=== PATIENT | female | born 1935 | race African-American/Black ===

== ENCOUNTER 2018-12-06 15:11 | Inpatient (IN) | payer OTHER ==
[~2018-12-06] VITALS: Ht 165.1 cm; Wt 111.4 kg
[~2018-12-06 15:11] MED LIST: LIDOCAINE HCL/PF 1% 2ML VIAL ONE
[2018-12-06] MEDS ORDERED: METHYLPREDNISOLONE SOD SUCC 125 MG/2 ML VIAL IV STA (15:28)
[2018-12-06] MEDS ORDERED: ASPIRIN 81MG TABLET PO ONE (15:30)
[2018-12-06] MEDS ORDERED: FUROSEMIDE 40MG/4ML VIAL IV ONE (15:30)
[2018-12-06] MEDS ORDERED: IPRATROPIUM/ALBUTEROL 0.5-3(2.5)MG/3ML NEB HHN ONE (15:30)
[2018-12-06] MEDS ORDERED: LEVOFLOXACIN 750MG PREMIX 150 ML IV ONE (15:30)
[2018-12-06 16:03] LABS: HEMATOCRIT. 33.4 % (36.0-48.0); HEMOGLOBIN. 10.5 g/dL (12.0-16.0); MEAN CORPUSCULAR HEMOGLOBIN 23.8 pg (28.0-32.0); MEAN CORPUSCULAR VOLUME 75.8 fL (81.0-99.0); MEAN PLATELET VOLUME 10.4 fl (7.4-10.4); PLATELET 146 x1000/uL (130-400); RED CELL DISTRIBUTION WIDTH 16.4 % (11.6-14.6)
[2018-12-06 16:04] LABS: CHLORIDE 103 mEq/L (98-107)
[2018-12-06 16:06] LABS: INR 1.6; PARTIAL THROMBOPLASTIN TIME 34.8 sec (23.4-31.0); PROTHROMBIN TIME 16.7 sec (9.6-11.0)
[2018-12-06 16:08] LABS: ETHANOL BLOOD < 10 mg/dL
[2018-12-06 17:26] LABS: BG BASE EXCESS 1.3 mmol/L (-2.0-2.0); BG BILEVEL POS AIRWAY PRESSURE 15/5; BG CARBOXYHEMOGLOBIN 1.1 % (0.5-1.5); BG DEOXYHEMOGLOBIN 3.7 % (0.0-5.0); BG HCO3 ACT 26.3 mmol/L (22.0-26.0); BG METHEMOGLOBIN 0.1 % (0.0-1.5); BG OXYGEN SATURATION 96.3 % (92.0-98.5); BG OXYHEMOGLOBIN 95.1 % (94.0-97.0); BG PCO2 43.1 mmHg (35.0-45.0); BG PH 7.403 (7.350-7.450); BG PO2 86.5 mmHg (75.0-100.0); BG SAMPLE SITE RIGHT RADIAL; BG TOTAL HEMOGLOBIN 11.3 g/dL (12.0-18.0); BG VENT MODE MASK - BIPAP; BG VENT RATE 14 set
[2018-12-06 18:02] LABS: PLATELET ESTIMATE NORMAL
[2018-12-06 21:00] VITALS: BP_SYST 120; BP_SYST 143; BP_DIAS 112; BP_DIAS 74
[2018-12-06 22:00] VITALS: BP 120/74
[2018-12-06] MEDS ORDERED: POTA99TA25 PO (22:43)
[2018-12-06] MEDS ORDERED: METO-539 PO (22:43)
[2018-12-06] MEDS ORDERED: BENA40TA9 PO (22:43)
[2018-12-06] MEDS ORDERED: ATOR40TA70 PO (22:43)
[2018-12-06] MEDS ORDERED: AMLO10TA80 PO (22:43)
[2018-12-06] MEDS ORDERED: APIX5TAB PO (22:43)
[2018-12-06] MEDS ORDERED: HYDR-3280 PO (22:43)
[2018-12-06] MEDS ORDERED: LETR2.5T6 PO (22:43)
[2018-12-06] MEDS ORDERED: CALC-989 PO (22:43)
[2018-12-06] MEDS ORDERED: FURO-151 PO (22:43)
[2018-12-06] MEDS ORDERED: LEVOFLOXACIN 500MG PREMIX 100 ML IV SCH (23:00)
[2018-12-06] MEDS ORDERED: DEXTROSE 50% WATER 50ML SYRINGE IV PRN (23:45)
[2018-12-07] VITALS (12 sets, daily range): BP systolic 99–153; BP diastolic 52–77
[2018-12-07] MEDS: IPRATROPIUM/ALBUTEROL 0.5-3(2.5)MG/3ML NEB HHN SCH ×4 (00:46→21:07)
[2018-12-07 06:34] LABS: HEMATOCRIT. 31.9 % (36.0-48.0); HEMOGLOBIN. 10.3 g/dL (12.0-16.0); MEAN CORPUSCULAR HEMOGLOBIN 24.2 pg (28.0-32.0); MEAN CORPUSCULAR VOLUME 74.7 fL (81.0-99.0); MEAN PLATELET VOLUME 10.8 fl (7.4-10.4); PLATELET 127 x1000/uL (130-400); RED BLOOD CELL COUNT 4.27 mill/uL (4.2-5.4); RED CELL DISTRIBUTION WIDTH 16.6 % (11.6-14.6)
[2018-12-07 07:30] LABS: PHOSPHORUS 3.8 mg/dL (2.5-4.9)
[2018-12-07] MEDS: BLOOD SUGAR DIAGNOSTIC STRIP TEST SCH ×4 (08:20→20:46)
[2018-12-07 08:30] LABS: CLARITY URINE CLOUDY (CLEAR); COLOR URINE YELLOW (YELLOW); KETONES URINE TRACE (NEGATIVE); LEUKOCYTE ESTERASE URINE NEGATIVE (NEGATIVE); NITRITE URINE NEGATIVE (NEGATIVE); OCCULT BLOOD URINE NEGATIVE (NEGATIVE); PROTEIN URINE 2+ (NEGATIVE); SPECIFIC GRAVITY URINE 1.014 (1.005-1.030); UROBILINOGEN URINE 0.2 E.U./dL (0.2-1.0)
[2018-12-07] MEDS: FUROSEMIDE 40MG/4ML VIAL IVP SCH ×2 (08:33→20:32)
[2018-12-07] MEDS: INSULIN LISPRO 100 UNITS/ML SUBCUT SCH ×4 (08:40→21:04)
[2018-12-07] MEDS: ACETAMINOPHEN 650MG/20.3ML UDC PO PRN ×2 (08:52→14:38)
[2018-12-07 08:53] LABS: *AMPHETAMINES SCREEN URINE NEGATIVE (NEGATIVE); *BARBITURATES SCREEN URINE NEGATIVE (NEGATIVE); *BENZODIAZEPINES SCREEN URINE NEGATIVE (NEGATIVE); *COCAINE SCREEN URINE NEGATIVE (NEGATIVE)
[2018-12-07 08:55] LABS: CANNABINOID URINE SCREEN NEGATIVE (NEGATIVE); METHADONE URINE SCREEN NEGATIVE (NEGATIVE); OPIATES URINE SCREEN PRESUMTIVE POSITIVE (NEGATIVE)
[2018-12-07 08:56] LABS: PHENCYCLIDINE URINE SCREEN NEGATIVE (NEGATIVE)
[2018-12-07] MEDS ORDERED: ENOXAPARIN 30MG/0.3ML SYR SUBCUT SCH (09:00)
[2018-12-07] MEDS ORDERED: MAGNESIUM 2 G PREMIX 50 ML IV SCH (10:00)
[2018-12-07] MEDS ORDERED: PROMETHAZINE/DEXTROMETHORPHAN 6.25-15MG/5ML BOTTLE 120ML PO PRN (12:30)
[2018-12-07] MEDS: AMLODIPINE 2.5MG TABLET PO SCH ×2 (12:50→21:07)
[2018-12-07] MEDS: BENAZEPRIL 5MG TABLET PO SCH ×2 (12:50→21:03)
[2018-12-07] MEDS: GUAIFENESIN 600MG ER TABLET PO SCH ×2 (12:50→20:37)
[2018-12-07] MEDS: METOPROLOL TARTRATE 25MG TABLET PO SCH ×2 (12:50→20:46)
[2018-12-07 14:28] LABS: PLATELET ESTIMATE NORMAL
[2018-12-07] MEDS ORDERED: APIXABAN 5 MG TABLET PO SCH ×2 (14:45→21:00)
[2018-12-07] MEDS: LETROZOLE 2.5MG TABLET PO SCH (16:17)
[2018-12-07] MEDS: LEVOFLOXACIN 250MG PREMIX 50 ML IV SCH (16:19)
[2018-12-07] MEDS ORDERED: IPRATROPIUM/ALBUTEROL 0.5-3(2.5)MG/3ML NEB HHN PRN (16:20)
[2018-12-07] MEDS: SODIUM CHLORIDE 45ML SPRAY NS SCH ×2 (17:14→20:43)
[2018-12-07] MEDS ORDERED: APIX5TAB PO (20:26)
[2018-12-07] MEDS: OXYMETAZOLINE HCL NASAL SPRAY 15ML BOTHNSTRLS SCH (20:33)
[2018-12-07] MEDS: FLUTICASONE PROPIONATE 50MCG/SPRAY BOTTLE BOTHNSTRLS SCH (20:33)
[2018-12-07] MEDS: APIXABAN 2.5 MG TABLET PO SCH (20:37)
[2018-12-08] VITALS (12 sets, daily range): BP systolic 103–141; BP diastolic 55–91
[2018-12-08] MEDS ORDERED: VANCOMYCIN 1500MG in DEXTROSE 5% WATER 250ML IV NR (01:00)
[2018-12-08] MEDS: IPRATROPIUM/ALBUTEROL 0.5-3(2.5)MG/3ML NEB HHN SCH ×3 (02:21→15:55)
[2018-12-08] MEDS: BLOOD SUGAR DIAGNOSTIC STRIP TEST SCH ×4 (07:30→21:30)
[2018-12-08] MEDS: BENAZEPRIL 5MG TABLET PO SCH ×2 (09:00→22:01)
[2018-12-08] MEDS: AMLODIPINE 2.5MG TABLET PO SCH ×2 (09:00→22:02)
[2018-12-08] MEDS: METOPROLOL TARTRATE 25MG TABLET PO SCH ×2 (09:00→21:26)
[2018-12-08 09:07] LABS: BG CARBOXYHEMOGLOBIN 0.6 % (0.5-1.5); BG DEOXYHEMOGLOBIN 6.3 % (0.0-5.0); BG FRACTION INSPIRED OXYGEN 28; BG HCO3 ACT 24.6 mmol/L (22.0-26.0); BG METHEMOGLOBIN 0.1 % (0.0-1.5); BG OXYGEN SATURATION 93.7 % (92.0-98.5); BG PCO2 39.6 mmHg (35.0-45.0); BG PH 7.411 (7.350-7.450); BG PO2 74.5 mmHg (75.0-100.0); BG SAMPLE SITE RIGHT RADIAL; BG TOTAL HEMOGLOBIN 11.2 g/dL (12.0-18.0); BG VENT MODE NASAL CANNULA
[2018-12-08] MEDS: FUROSEMIDE 40MG/4ML VIAL IVP SCH ×2 (09:57→21:23)
[2018-12-08] MEDS: APIXABAN 2.5 MG TABLET PO SCH ×2 (09:59→21:25)
[2018-12-08] MEDS: OXYMETAZOLINE HCL NASAL SPRAY 15ML BOTHNSTRLS SCH ×2 (10:00→21:28)
[2018-12-08] MEDS: FLUTICASONE PROPIONATE 50MCG/SPRAY BOTTLE BOTHNSTRLS SCH ×2 (10:00→21:29)
[2018-12-08] MEDS: SODIUM CHLORIDE 45ML SPRAY NS SCH ×4 (10:02→21:28)
[2018-12-08] MEDS: LETROZOLE 2.5MG TABLET PO SCH (10:02)
[2018-12-08] MEDS: GUAIFENESIN 600MG ER TABLET PO SCH ×2 (10:21→21:25)
[2018-12-08] MEDS: ACETAMINOPHEN 650MG/20.3ML UDC PO PRN ×2 (10:21→19:08)
[2018-12-08] MEDS: INSULIN LISPRO 100 UNITS/ML SUBCUT SCH ×4 (10:23→21:43)
[2018-12-08] MEDS ORDERED: FURO80TA3 MT (16:08)
[2018-12-08] MEDS: LEVOFLOXACIN 250MG PREMIX 50 ML IV SCH (16:08)
[2018-12-08] MEDS ORDERED: TOPXL5 MT (16:11)
[2018-12-08] MEDS ORDERED: DIXL5 MT (16:13)
[2018-12-08] MEDS ORDERED: GLIM1TAB2 MT (16:13)
[2018-12-08] MEDS ORDERED: BUSP-29 PO (16:13)
[2018-12-08] MEDS: IPRATROPIUM BROMIDE (0.02%) 0.5MG/2.5ML NEB HHN SCH (21:11)
[2018-12-08] MEDS: BUDESONIDE 0.5MG/2ML NEB HHN SCH (21:12)
[2018-12-09] VITALS (13 sets, daily range): BP systolic 99–159; BP diastolic 64–93
[2018-12-09] MEDS: IPRATROPIUM BROMIDE (0.02%) 0.5MG/2.5ML NEB HHN SCH ×4 (01:54→21:20)
[2018-12-09] MEDS: BLOOD SUGAR DIAGNOSTIC STRIP TEST SCH ×4 (07:34→21:31)
[2018-12-09] MEDS: METOPROLOL TARTRATE 25MG TABLET PO SCH ×2 (08:13→21:31)
[2018-12-09] MEDS: INSULIN LISPRO 100 UNITS/ML SUBCUT SCH ×4 (08:16→22:08)
[2018-12-09] MEDS: LETROZOLE 2.5MG TABLET PO SCH (09:17)
[2018-12-09] MEDS: OXYMETAZOLINE HCL NASAL SPRAY 15ML BOTHNSTRLS SCH ×2 (09:17→21:34)
[2018-12-09] MEDS: FLUTICASONE PROPIONATE 50MCG/SPRAY BOTTLE BOTHNSTRLS SCH ×2 (09:17→21:34)
[2018-12-09] MEDS: SODIUM CHLORIDE 45ML SPRAY NS SCH ×4 (09:17→21:33)
[2018-12-09] MEDS: AMLODIPINE 2.5MG TABLET PO SCH ×2 (09:18→21:31)
[2018-12-09] MEDS: GUAIFENESIN 600MG ER TABLET PO SCH ×2 (09:18→21:31)
[2018-12-09] MEDS: APIXABAN 2.5 MG TABLET PO SCH ×2 (09:18→21:31)
[2018-12-09] MEDS: BUDESONIDE 0.5MG/2ML NEB HHN SCH ×2 (09:23→21:20)
[2018-12-09] MEDS ORDERED: VANCOMYCIN 2,000 MG in DEXT 5% WATER 500 ML IV NR (11:00)
[2018-12-09] MEDS: LEVOFLOXACIN 250MG PREMIX 50 ML IV SCH (15:36)
[2018-12-09 16:11] LABS: HEMATOCRIT. 33.1 % (36.0-48.0); HEMOGLOBIN. 10.7 g/dL (12.0-16.0); MEAN CORPUSCULAR HEMOGLOBIN 24.1 pg (28.0-32.0); MEAN CORPUSCULAR VOLUME 74.5 fL (81.0-99.0); MEAN PLATELET VOLUME 10.2 fl (7.4-10.4); PLATELET 155 x1000/uL (130-400); RED BLOOD CELL COUNT 4.45 mill/uL (4.2-5.4); RED CELL DISTRIBUTION WIDTH 16.2 % (11.6-14.6)
[2018-12-09 17:04] LABS: PLATELET ESTIMATE NORMAL
[2018-12-09] MEDS ORDERED: POTASSIUM CHLORIDE 20MEQ TABLET SR PO NR (19:45)
[2018-12-10] VITALS (13 sets, daily range): BP systolic 95–154; BP diastolic 56–102
[2018-12-10] MEDS: ACETAMINOPHEN 650MG/20.3ML UDC PO PRN
[2018-12-10] MEDS: IPRATROPIUM BROMIDE (0.02%) 0.5MG/2.5ML NEB HHN SCH ×4 (02:05→20:37)
[2018-12-10] MEDS: BLOOD SUGAR DIAGNOSTIC STRIP TEST SCH ×4 (07:30→21:00)
[2018-12-10] MEDS: INSULIN LISPRO 100 UNITS/ML SUBCUT SCH ×4 (08:00→22:30)
[2018-12-10] MEDS: BUDESONIDE 0.5MG/2ML NEB HHN SCH ×2 (08:45→20:37)
[2018-12-10] MEDS: METOPROLOL TARTRATE 25MG TABLET PO SCH (09:00)
[2018-12-10] MEDS: AMLODIPINE 2.5MG TABLET PO SCH (09:00)
[2018-12-10] MEDS: LETROZOLE 2.5MG TABLET PO SCH (10:26)
[2018-12-10] MEDS: FLUTICASONE PROPIONATE 50MCG/SPRAY BOTTLE BOTHNSTRLS SCH (10:26)
[2018-12-10] MEDS: SODIUM CHLORIDE 45ML SPRAY NS SCH ×4 (10:26→21:00)
[2018-12-10] MEDS: APIXABAN 2.5 MG TABLET PO SCH ×2 (10:27→20:50)
[2018-12-10] MEDS: GUAIFENESIN 600MG ER TABLET PO SCH ×2 (10:27→20:57)
[2018-12-10] MEDS: OXYMETAZOLINE HCL NASAL SPRAY 15ML BOTHNSTRLS SCH ×2 (10:31→21:00)
[2018-12-10 11:45] LABS: BG CARBOXYHEMOGLOBIN 0.8 % (0.5-1.5); BG DEOXYHEMOGLOBIN 9.4 % (0.0-5.0); BG FRACTION INSPIRED OXYGEN 21; BG HCO3 ACT 29.4 mmol/L (22.0-26.0); BG METHEMOGLOBIN 0.1 % (0.0-1.5); BG OXYGEN SATURATION 90.5 % (92.0-98.5); BG OXYHEMOGLOBIN 89.7 % (94.0-97.0); BG PCO2 42.9 mmHg (35.0-45.0); BG PH 7.454 (7.350-7.450); BG PO2 58.2 mmHg (75.0-100.0); BG SAMPLE SITE RIGHT RADIAL; BG TOTAL HEMOGLOBIN 11.4 g/dL (12.0-18.0); BG VENT MODE ROOM AIR
[2018-12-10] MEDS ORDERED: VANCOMYCIN 1,750 MG in DEXT 5% WATER 500 ML IV NR ×2 (14:00→17:00)
[2018-12-10] MEDS ORDERED: DIGOXIN 500MCG/2ML AMP IV ONE ×2 (16:00→22:00)
[2018-12-10] MEDS: LEVOFLOXACIN 250MG PREMIX 50 ML IV SCH (16:18)
[2018-12-10] MEDS: HYDROCODONE/ACETAMINOPHEN 10/325MG TABLET PO PRN (16:51)
[2018-12-10] MEDS ORDERED: METOPROLOL TARTRATE 25MG TABLET PO ONE (18:30)
[2018-12-10] MEDS ORDERED: FUROSEMIDE 40MG/4ML VIAL IVP NR (18:45)
[2018-12-10 18:58] LABS: LDL CHOLESTEROL 32 mg/dL (5-100)
[2018-12-10 18:59] LABS: CREATINE KINASE 60 IU/L (26-192); HDL CHOLESTEROL 40 mg/dL (40-59)
[2018-12-10 19:00] LABS: T4 FREE 0.99 ng/dL (0.76-1.46)
[2018-12-10 19:02] LABS: CREATINE KINASE MB FRACTION < 1.0 ng/mL (0.5-3.6)
[2018-12-10] MEDS: METOPROLOL TARTRATE 50MG TABLET PO SCH (20:54)
[2018-12-11] VITALS (13 sets, daily range): BP systolic 106–150; BP diastolic 62–90
[2018-12-11] MEDS: HYDROCODONE/ACETAMINOPHEN 10/325MG TABLET PO PRN ×4 (01:54→21:48)
[2018-12-11] MEDS: IPRATROPIUM BROMIDE (0.02%) 0.5MG/2.5ML NEB HHN SCH ×4 (02:20→20:32)
[2018-12-11 07:09] LABS: MEAN CORPUSCULAR HEMOGLOBIN 23.9 pg (28.0-32.0); MEAN CORPUSCULAR VOLUME 73.8 fL (81.0-99.0); PLATELET 178 x1000/uL (130-400); RED CELL DISTRIBUTION WIDTH 16.1 % (11.6-14.6)
[2018-12-11 07:14] LABS: INR 1.3; PROTHROMBIN TIME 13.4 sec (9.6-11.0)
[2018-12-11] MEDS: BUDESONIDE 0.5MG/2ML NEB HHN SCH (07:48)
[2018-12-11] MEDS: INSULIN LISPRO 100 UNITS/ML SUBCUT SCH ×4 (08:00→23:20)
[2018-12-11] MEDS: APIXABAN 2.5 MG TABLET PO SCH ×2 (08:33→21:48)
[2018-12-11] MEDS: LETROZOLE 2.5MG TABLET PO SCH (08:33)
[2018-12-11] MEDS: GUAIFENESIN 600MG ER TABLET PO SCH ×2 (08:33→21:48)
[2018-12-11] MEDS: METOPROLOL TARTRATE 50MG TABLET PO SCH ×2 (08:41→21:46)
[2018-12-11] MEDS: BLOOD SUGAR DIAGNOSTIC STRIP TEST SCH ×3 (12:38→21:00)
[2018-12-11] MEDS: SODIUM CHLORIDE 45ML SPRAY NS SCH ×3 (12:39→21:49)
[2018-12-11] MEDS ORDERED: POTASSIUM CHLORIDE INJ 30 MEQ in DEXT 5% WATER 250 ML IV NR (14:30)
[2018-12-11] MEDS ORDERED: MAGNESIUM 2 G PREMIX 50 ML IV NR (14:30)
[2018-12-11] MEDS: LEVOFLOXACIN 250MG PREMIX 50 ML IV SCH (16:08)
[2018-12-11] MEDS: VANCOMYCIN 1250MG in DEXTROSE 5% WATER 250ML IV SCH (21:49)
[2018-12-12] VITALS (15 sets, daily range): BP systolic 110–150; BP diastolic 58–85
[2018-12-12] MEDS: IPRATROPIUM BROMIDE (0.02%) 0.5MG/2.5ML NEB HHN SCH ×3 (02:52→21:31)
[2018-12-12 07:10] LABS: CHLORIDE 100 mEq/L (98-107)
[2018-12-12 07:15] LABS: HEMATOCRIT 35.6 % (36.0-48.0); HEMOGLOBIN 11.6 g/dL (12.0-16.0); MEAN CORPUSCULAR HEMOGLOBIN 23.8 pg (28.0-32.0); MEAN CORPUSCULAR VOLUME 73.3 fL (81.0-99.0); PLATELET 200 x1000/uL (130-400); RED BLOOD CELL COUNT 4.86 mill/uL (4.2-5.4); RED CELL DISTRIBUTION WIDTH 16.4 % (11.6-14.6)
[2018-12-12] MEDS: INSULIN LISPRO 100 UNITS/ML SUBCUT SCH ×4 (08:00→21:00)
[2018-12-12] MEDS: BLOOD SUGAR DIAGNOSTIC STRIP TEST SCH ×4 (08:33→21:48)
[2018-12-12] MEDS: LETROZOLE 2.5MG TABLET PO SCH (08:40)
[2018-12-12] MEDS: APIXABAN 2.5 MG TABLET PO SCH (08:40)
[2018-12-12] MEDS: GUAIFENESIN 600MG ER TABLET PO SCH ×2 (08:40→21:45)
[2018-12-12] MEDS: METOPROLOL TARTRATE 50MG TABLET PO SCH ×2 (08:40→21:45)
[2018-12-12] MEDS: SODIUM CHLORIDE 45ML SPRAY NS SCH ×4 (08:41→21:47)
[2018-12-12] MEDS: VANCOMYCIN 1250MG in DEXTROSE 5% WATER 250ML IV SCH (11:48)
[2018-12-12] MEDS: ACETAMINOPHEN 650MG/20.3ML UDC PO PRN (12:20)
[2018-12-12] MEDS: HYDROCODONE/ACETAMINOPHEN 10/325MG TABLET PO PRN ×2 (14:01→21:45)
[2018-12-12] MEDS: PIPERACILLIN/TAZ 3.375G PREMIX 50 ML IV SCH ×2 (14:02→21:44)
[2018-12-12 20:15] LABS: CLARITY URINE TURBID (CLEAR); COLOR URINE YELLOW (YELLOW); KETONES URINE NEGATIVE (NEGATIVE); LEUKOCYTE ESTERASE URINE TRACE (NEGATIVE); NITRITE URINE NEGATIVE (NEGATIVE); OCCULT BLOOD URINE 3+ (NEGATIVE); PH URINE 5.5 (4.5-8.0); PROTEIN URINE 2+ (NEGATIVE); SPECIFIC GRAVITY URINE 1.027 (1.005-1.030)
[2018-12-13] VITALS (13 sets, daily range): BP systolic 113–145; BP diastolic 52–74
[2018-12-13] MEDS: IPRATROPIUM BROMIDE (0.02%) 0.5MG/2.5ML NEB HHN SCH ×4 (02:10→20:30)
[2018-12-13] MEDS: BLOOD SUGAR DIAGNOSTIC STRIP TEST SCH ×4 (08:00→21:00)
[2018-12-13] MEDS: INSULIN LISPRO 100 UNITS/ML SUBCUT SCH ×3 (08:00→21:00)
[2018-12-13 08:08] LABS: HEMATOCRIT 33.5 % (36.0-48.0); HEMOGLOBIN 10.8 g/dL (12.0-16.0); MEAN CORPUSCULAR HEMOGLOBIN 23.7 pg (28.0-32.0); MEAN CORPUSCULAR VOLUME 73.6 fL (81.0-99.0); PLATELET 224 x1000/uL (130-400); RED BLOOD CELL COUNT 4.55 mill/uL (4.2-5.4); RED CELL DISTRIBUTION WIDTH 16.1 % (11.6-14.6)
[2018-12-13 08:31] LABS: CHLORIDE 98 mEq/L (98-107)
[2018-12-13] MEDS: PIPERACILLIN/TAZ 3.375G PREMIX 50 ML IV SCH ×3 (10:41→21:00)
[2018-12-13] MEDS: METOPROLOL TARTRATE 50MG TABLET PO SCH ×2 (10:42→20:57)
[2018-12-13] MEDS: GUAIFENESIN 600MG ER TABLET PO SCH ×2 (10:43→20:42)
[2018-12-13] MEDS: LETROZOLE 2.5MG TABLET PO SCH (10:44)
[2018-12-13] MEDS: SODIUM CHLORIDE 45ML SPRAY NS SCH ×4 (10:45→21:01)
[2018-12-13] MEDS ORDERED: HYDROCODONE/ACETAMINOPHEN 10/325MG TABLET ONE (10:58)
[2018-12-13] MEDS: VANCOMYCIN 1250MG in DEXTROSE 5% WATER 250ML IV SCH (11:01)
[2018-12-13] MEDS: HYDROCODONE/ACETAMINOPHEN 10/325MG TABLET PO PRN ×2 (11:01→19:00)
[2018-12-14] VITALS (15 sets, daily range): BP systolic 3–141; BP diastolic 63–96
[2018-12-14] MEDS: IPRATROPIUM BROMIDE (0.02%) 0.5MG/2.5ML NEB HHN SCH ×4 (01:30→20:35)
[2018-12-14] MEDS: PIPERACILLIN/TAZ 3.375G PREMIX 50 ML IV SCH ×4 (03:44→21:02)
[2018-12-14] MEDS: VANCOMYCIN 1250MG in DEXTROSE 5% WATER 250ML IV SCH ×2 (04:40→22:10)
[2018-12-14] MEDS: HYDROCODONE/ACETAMINOPHEN 10/325MG TABLET PO PRN ×2 (05:14→21:01)
[2018-12-14] MEDS: BLOOD SUGAR DIAGNOSTIC STRIP TEST SCH ×5 (07:50→20:54)
[2018-12-14] MEDS: INSULIN LISPRO 100 UNITS/ML SUBCUT SCH ×4 (07:55→21:00)
[2018-12-14 08:47] LABS: HEMOGLOBIN 10.3 g/dL (12.0-16.0); MEAN CORPUSCULAR HEMOGLOBIN 23.5 pg (28.0-32.0); MEAN CORPUSCULAR VOLUME 72.9 fL (81.0-99.0); PLATELET 257 x1000/uL (130-400); RED BLOOD CELL COUNT 4.39 mill/uL (4.2-5.4); RED CELL DISTRIBUTION WIDTH 16.1 % (11.6-14.6)
[2018-12-14 08:54] LABS: CHLORIDE 97 mEq/L (98-107)
[2018-12-14] MEDS: SODIUM CHLORIDE 45ML SPRAY NS SCH ×4 (09:22→21:04)
[2018-12-14] MEDS: GUAIFENESIN 600MG ER TABLET PO SCH ×2 (09:22→21:02)
[2018-12-14] MEDS: LETROZOLE 2.5MG TABLET PO SCH (09:23)
[2018-12-14] MEDS: METOPROLOL TARTRATE 50MG TABLET PO SCH ×2 (09:23→21:02)
[2018-12-14] MEDS ORDERED: POTASSIUM CHLORIDE 20MEQ/PACKET PO NR (16:00)
[2018-12-14] MEDS: ENOXAPARIN 30MG/0.3ML SYR SUBCUT SCH (17:21)
[2018-12-14] MEDS ORDERED: POTASSIUM CHLORIDE 20MEQ TABLET SR PO ONE (20:00)
[2018-12-15] VITALS (11 sets, daily range): BP systolic 102–152; BP diastolic 59–107
[2018-12-15] MEDS: IPRATROPIUM BROMIDE (0.02%) 0.5MG/2.5ML NEB HHN SCH ×4 (01:38→20:43)
[2018-12-15] MEDS: PIPERACILLIN/TAZ 3.375G PREMIX 50 ML IV SCH ×4 (03:34→22:33)
[2018-12-15] MEDS: ENOXAPARIN 30MG/0.3ML SYR SUBCUT SCH (05:32)
[2018-12-15] MEDS: INSULIN LISPRO 100 UNITS/ML SUBCUT SCH ×4 (08:00→21:00)
[2018-12-15] MEDS: LETROZOLE 2.5MG TABLET PO SCH (08:22)
[2018-12-15] MEDS: GUAIFENESIN 600MG ER TABLET PO SCH ×2 (08:22→22:31)
[2018-12-15] MEDS: SODIUM CHLORIDE 45ML SPRAY NS SCH ×4 (08:23→22:34)
[2018-12-15] MEDS: METOPROLOL TARTRATE 50MG TABLET PO SCH ×2 (08:24→22:31)
[2018-12-15] MEDS: BLOOD SUGAR DIAGNOSTIC STRIP TEST SCH ×3 (12:25→21:00)
[2018-12-16] VITALS (13 sets, daily range): BP systolic 3–134; BP diastolic 43–113
[2018-12-16] MEDS: IPRATROPIUM BROMIDE (0.02%) 0.5MG/2.5ML NEB HHN SCH ×3 (02:29→14:05)
[2018-12-16] MEDS: PIPERACILLIN/TAZ 3.375G PREMIX 50 ML IV SCH ×2 (05:27→11:08)
[2018-12-16] MEDS: BLOOD SUGAR DIAGNOSTIC STRIP TEST SCH ×3 (07:26→16:55)
[2018-12-16] MEDS: INSULIN LISPRO 100 UNITS/ML SUBCUT SCH ×3 (07:26→17:06)
[2018-12-16 07:43] LABS: HEMOGLOBIN 10.4 g/dL (12.0-16.0); MEAN CORPUSCULAR HEMOGLOBIN 23.8 pg (28.0-32.0); MEAN CORPUSCULAR VOLUME 72.7 fL (81.0-99.0); PLATELET 314 x1000/uL (130-400); RED BLOOD CELL COUNT 4.39 mill/uL (4.2-5.4); RED CELL DISTRIBUTION WIDTH 16.9 % (11.6-14.6)
[2018-12-16 07:51] LABS: CHLORIDE 97 mEq/L (98-107)
[2018-12-16] MEDS: ACETAMINOPHEN 650MG/20.3ML UDC PO PRN ×2 (08:06→15:57)
[2018-12-16] MEDS: SODIUM CHLORIDE 45ML SPRAY NS SCH ×3 (08:09→16:21)
[2018-12-16] MEDS: METOPROLOL TARTRATE 50MG TABLET PO SCH (08:09)
[2018-12-16] MEDS: LETROZOLE 2.5MG TABLET PO SCH (08:10)
[2018-12-16] MEDS: GUAIFENESIN 600MG ER TABLET PO SCH (08:11)
[2018-12-16] MEDS ORDERED: HYDROCODONE/ACETAMINOPHEN 10/325MG TABLET PO PRN (10:00)
[2018-12-16] MEDS ORDERED: LACTULOSE 20G/30ML UDC PO NR (15:45)
[2018-12-16] MEDS ORDERED: POTASSIUM CHLORIDE 20MEQ TABLET SR PO NR (15:45)
[2018-12-16] MEDS ORDERED: PIPERACILLIN/TAZ 3.375G PREMIX 50 ML IV SCH (17:00)
== END 2018-12-16 21:55 | DRG 871 ==
LOC: ER 15:11 → 5EST 17:47 → EDBEDREQSVC 17:50 → EDBEDREQ 17:50 → ENRESERV 20:08
PROVIDERS: ADMIT Internal Medicine; ATTEND Internal Medicine
PROC: 5A09357 Assistance with Respiratory Ventilation, Less than 24 Consecutive Hours, Continuous Positive Airway Pressure (ICD-10-PCS; principal; 2018-12-06)
DX: A41.9 Sepsis, unspecified organism (principal); J96.00 Acute respiratory failure, unspecified whether with hypoxia or hypercapnia; J18.9 Pneumonia, unspecified organism; I50.43 Acute on chronic combined systolic (congestive) and diastolic (congestive) heart failure; R04.2 Hemoptysis; I13.0 Hypertensive heart and chronic kidney disease with heart failure and stage 1 through stage 4 chronic kidney disease, or unspecified chronic kidney disease; D68.59 Other primary thrombophilia; E87.2 Acidosis; N17.9 Acute kidney failure, unspecified; I48.2 Chronic atrial fibrillation; E11.22 Type 2 diabetes mellitus with diabetic chronic kidney disease; N18.3 Chronic kidney disease, stage 3 (moderate); E11.40 Type 2 diabetes mellitus with diabetic neuropathy, unspecified; E83.42 Hypomagnesemia; J45.20 Mild intermittent asthma, uncomplicated; E66.9 Obesity, unspecified; I25.2 Old myocardial infarction; J31.0 Chronic rhinitis; I36.1 Nonrheumatic tricuspid (valve) insufficiency; S30.1XXA Contusion of abdominal wall, initial encounter; X58.XXXA Exposure to other specified factors, initial encounter; E11.65 Type 2 diabetes mellitus with hyperglycemia; E80.6 Other disorders of bilirubin metabolism; M54.5 Low back pain; M48.00 Spinal stenosis, site unspecified; N85.9 Noninflammatory disorder of uterus, unspecified; D64.9 Anemia, unspecified; J40 Bronchitis, not specified as acute or chronic; Z90.10 Acquired absence of unspecified breast and nipple; Z87.891 Personal history of nicotine dependence; Z86.73 Personal history of transient ischemic attack (TIA), and cerebral infarction without residual deficits; Z83.3 Family history of diabetes mellitus; Z85.3 Personal history of malignant neoplasm of breast; Z82.49 Family history of ischemic heart disease and other diseases of the circulatory system; Z79.01 Long term (current) use of anticoagulants; Z90.49 Acquired absence of other specified parts of digestive tract; Z80.8 Family history of malignant neoplasm of other organs or systems; Z79.899 Other long term (current) drug therapy; Y93.89 Activity, other specified; Y92.89 Other specified places as the place of occurrence of the external cause; Y99.8 Other external cause status
CPT/HCPCS: 36415; 36600; 71045; 72148; 74176; 76700; 78582; 80048; 80061; 80076; 80202; 80305; 80320; 82375; 82550; 82553; 82565; 82805; 82962; 83036; 83605; 83735; 83880; 84100; 84439; 84443; 84484; 85027; 85379; 86304; 87070; 93005; 93306; 93970; 94640; 94667; 96374; 96375; 97162; 97166; 97530; 97535; 99285; A9558; C1893; J1160; J1650; J1815; J1940; J1956; J2543; J2930; J3370; J3475; J3480; J3490; J7050; J7060; J7620; J7626; A4315; G0480